=== PATIENT | male | born 1985 | race Caucasian/White ===

== ENCOUNTER 2016-08-22 12:26 | Emergency (ER) | payer OTHER | END 2016-08-22 16:29 | disposition home or self-care (01) | LOC: D.ER 12:26 | DX: F41.9 Anxiety disorder, unspecified (principal); G47.00 Insomnia, unspecified; F17.200 Nicotine dependence, unspecified, uncomplicated ==

== ENCOUNTER 2019-02-09 13:50 | Emergency (ER) | payer BC ==
[~2019-02-09] VITALS: Ht 185.4 cm; Wt 95.5 kg
[2019-02-09 14:07] VITALS: BP 138/85; Ht 185.4 cm; Wt 95.5 kg
[2019-02-09] MEDS ORDERED: KLONOPIN1 MG PO ×2 (14:10→15:35)
== END 2019-02-09 15:46 | disposition home or self-care (01) ==
LOC: D.ER 13:50
DX: F41.0 Panic disorder [episodic paroxysmal anxiety] (principal); F17.200 Nicotine dependence, unspecified, uncomplicated